=== PATIENT | male | born 1965 | race Caucasian/White ===

== ENCOUNTER 2017-11-12 15:10 | Emergency (ER) | payer SELFPAY ==
[2017-11-12] MEDS ORDERED: Ketorolac INJ* 60 MG/2 ML VIAL IM ONE (16:31)
[2017-11-12] MEDS ORDERED: LORazepam TAB(*) 1 MG PO ONE (16:31)
--- NOTE | 2017-11-12 18:33 | ED ---
Wil Daniel Natalie, scribed for Berto Emerson MD on 11/12/17 at 1636 . Back Pain - HPI Summary HPI Summary: The pt is a 52 y/o M presenting to the ED c/o low right back starting last night. The pain does not radiate. The pain is rated 8/10. The pain is aggravated by movement and is alleviated by nothing. The pt used a heating pad and took warm baths to no relief. 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 Pt denies abnormal urination and BM, and loss of appetite. 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 - History of Current Complaint Chief Complaint: EDBackInjuryPain Stated Complaint: LOWER BACK PAIN Time Seen by Provider: 11/12/17 16:19 Hx Obtained From: Patient Onset/Duration: Sudden Onset, Lasting Hours - started last night, Still Present Onset/Duration: Started Hours Ago, Still Present Timing: Constant Severity Initially: Moderate Severity Currently: Moderate Pain Intensity: 8 Pain Scale Used: 0-10 Numeric Aggravating Symptom(s): Movement Alleviating Symptom(s): Nothing Associated Signs And Symptoms: Positive: Other - POSITIVE: normal urination and BM; NEGATIVE: loss of appetite - Allergies/Home Medications Allergies/Adverse Reactions: Allergies Allergy/AdvReac Type Severity Reaction Status Date / Time No Known Allergies Allergy Verified 10/10/15 20:53 PMH/Surg Hx/FS Hx/Imm Hx Previously Healthy: No Musculoskeletal History: Reports: Hx Back Problems Opthamlomology History: Denies: Hx Legally Blind EENT History: Denies: Hx Deafness - Immunization History Date of Tetanus Vaccine: unknown Date of Influenza Vaccine: NO Infectious Disease History: No Infectious Disease History: Denies: Traveled Outside the [place] in Last 30 Days - Family History Known Family History: Positive: Cardiac Disease, Hypertension, Diabetes, Respiratory Disease - Social History Alcohol Use: Daily Alcohol Amount: 11/12/17 "haven't had a drink in a week" Substance Use Type: Reports: Marijuana Hx Tobacco Use: Yes Smoking Status (MU): Light Every Day Tobacco Smoker Review of Systems Positive: Other - normal BM Positive: other - normal urination Positive: Other - low right back pain Neurological: Other - no loss of appetite All Other Systems Reviewed And Are Negative: Yes Physical Exam - Summary Physical Exam Summary: Appearance: The patient is well-nourished in no acute distress and in no acute pain. Skin: The skin is warm and dry and skin color reflects adequate perfusion. HEENT: The head is normocephalic and atraumatic. The pupils are equal and reactive. The conjunctivae are clear and without drainage. Nares are patent and without drainage. Mouth reveals moist mucous membranes and the throat is without erythema and exudate. The external ears are intact. The ear canals are patent and without drainage. The tympanic membranes are intact. Neck: The neck is supple with full range of motion and non-tender. There are no carotid bruits. There is no neck vein distension. Respiratory: Chest is non-tender. Lungs are clear to auscultation and breath sounds are symmetrical and equal. Cardiovascular: Heart is regular rate and rhythm. There is no murmur or rub auscultated. There is no peripheral edema and pulses are symmetrical and equal. Abdomen: There is mild RLQ tenderness. There are normal bowel sounds heard in all four quadrants and there is no organomegaly palpated. Musculoskeletal: There is tenderness in paralumbar area Extremities are non- tender with full range of motion. There is good capillary refill. There is no peripheral edema or calf tenderness elicited. Neurological: Patient is alert and oriented to person, place and time. The patient has symmetrical motor strength in all four extremities. Cranial nerves are grossly intact. Positive straight leg raise on right. Psychiatric: The patient has an appropriate affect and does not exhibit any anxiety or depression. Triage Information Reviewed: Yes Vital Signs On Initial Exam: Initial Vitals Temp Pulse Resp BP Pulse Ox 97.6 F 61 19 134/83 97 11/12/17 15:18 11/12/17 15:18 11/12/17 15:18 11/12/17 15:18 11/12/17 15:18 Vital Signs Reviewed: Yes - Angela Coma Scale Coma Scale Total: 15 Diagnostics - Vital Signs Vital Signs Temp Pulse Resp BP Pulse Ox 11/12/17 15:18 97.6 F 61 19 134/83 97 - Laboratory Lab Statement: Any lab studies that have been ordered have been reviewed, and results considered in the medical decision making process. Back Pain Course/Dx - Course Course Of Treatment: Mr. Rabago presented with low back pain without acute injury which he has had in the past. His exam was consistent with strain and he was treated with Ativan as a muscle relaxer and Toradol. He got a lot of relief and I will treat him accordingly. - Diagnoses Provider Diagnoses: Low back strain Discharge - Discharge Plan Condition: Stable Disposition: HOME Prescriptions: LORazepam TAB(*) [Ativan TAB(*)] 1 mg PO Q6H PRN #20 tab MDD 4 PRN Reason: Pain Patient Education Materials: Low Back Strain (ED) Referrals: No Primary Care Phys,NOPCP [Primary Care Provider] - 3 Days Additional Instructions: Follow up with your primary care provider in 3-5 days. Take Ativan as prescribed. Return to the Emergency Department if any new or worsening symptoms occur. The documentation as recorded by the Wli pires Natalie accurately reflects the service I personally performed and the decisions made by me, Berto Emerson MD.
[2017-11-12 18:46] VITALS: BP 131/78
== END 2017-11-12 18:45 | disposition home or self-care (01) ==
LOC: ED 15:10
DX: S39.012A Strain of muscle, fascia and tendon of lower back, initial encounter (principal); X58.XXXA Exposure to other specified factors, initial encounter; F17.200 Nicotine dependence, unspecified, uncomplicated
CPT/HCPCS: 96372; 99282; A9270-GY; J1885

== ENCOUNTER 2019-04-03 13:35 | Emergency (ER) | payer SELFPAY ==
--- NOTE | 2019-04-03 15:09 | ED ---
Throat Pain/Nasal Congestion - HPI Summary HPI Summary: Patient complains of right-sided facial swelling with history of broken tooth and upper right jaw. Denies pain but states facial swelling started yesterday with large increased today. Denies ESTRADA, fever, ear pain, cough, sore throat, CP , SOB, N/V/D, abdominal pain, change in urine, change in BM. Patient eating and drinking normally. - History of Current Complaint Chief Complaint: EDDentalPain Time Seen by Provider: 04/03/19 14:42 Hx Obtained From: Patient Onset/Duration: Sudden Onset, Lasting Days Severity: Mild Associated Signs And Symptoms: Positive: Negative Cough: None - Allergies/Home Medications Allergies/Adverse Reactions: Allergies Allergy/AdvReac Type Severity Reaction Status Date / Time No Known Allergies Allergy Verified 04/03/19 13:54 PMH/Surg Hx/FS Hx/Imm Hx Endocrine/Hematology History: Denies: Hx Anticoagulant Therapy Cardiovascular History: Denies: Hx Pacemaker/ICD History: Denies: Hx Dialysis Musculoskeletal History: Reports: Hx Back Problems Sensory History: Denies: Hx Deafness Opthamlomology History: Denies: Hx Legally Blind EENT History: Denies: Hx Hearing Aid Neurological History: Denies: Hx Dementia Psychiatric History: Denies: Hx Autism - Immunization History Date of Tetanus Vaccine: unknown Date of Influenza Vaccine: NO Infectious Disease History: No Infectious Disease History: Denies: Traveled Outside the [place] in Last 30 Days - Family History Known Family History: Positive: Cardiac Disease, Hypertension, Diabetes, Respiratory Disease - Social History Alcohol Use: Daily Alcohol Amount: 11/12/17 "haven't had a drink in a week" Substance Use Type: Reports: Marijuana Hx Tobacco Use: Yes Smoking Status (MU): Light Every Day Tobacco Smoker Review of Systems Constitutional: Negative Eyes: Negative ENT: Negative Cardiovascular: Negative Respiratory: Negative Gastrointestinal: Negative Genitourinary: Negative Musculoskeletal: Negative Skin: Other Neurological: Negative Psychological: Normal All Other Systems Reviewed And Are Negative: Yes Physical Exam - Summary Physical Exam Summary: Facial swelling with evidence of cellulitis and possible beginning abscess on right side of face lateral to nose and superior to mouth. No fluctuance. Full range of motion of jaw. ENT exam unremarkable. Triage Information Reviewed: Yes Vital Signs On Initial Exam: Initial Vitals Temp Pulse Resp BP Pulse Ox 97.1 F 88 18 147/79 96 04/03/19 13:36 04/03/19 13:36 04/03/19 13:36 04/03/19 13:36 04/03/19 13:36 Vital Signs Reviewed: Yes Appearance: Positive: Well-Appearing Skin: Positive: Warm Head/Face: Positive: Normal Head/Face Inspection Eyes: Positive: Normal ENT: Positive: Normal ENT inspection Neck: Positive: Supple Respiratory/Lung Sounds: Positive: Clear to Auscultation Cardiovascular: Positive: Normal Abdomen Description: Positive: Nontender Musculoskeletal: Positive: Normal Neurological: Positive: Normal Psychiatric: Positive: Normal AVPU Assessment: Alert - Angela Coma Scale Best Eye Response: 4 - Spontaneous Best Motor Response: 6 - Obeys Commands Best Verbal Response: 5 - Oriented Coma Scale Total: 15 Diagnostics - Vital Signs Vital Signs Temp Pulse Resp BP Pulse Ox 04/03/19 13:36 97.1 F 88 18 147/79 96 - Laboratory Lab Statement: Any lab studies that have been ordered have been reviewed, and results considered in the medical decision making process. EENT Course/Dx - Course Course Of Treatment: Patient complains of right-sided facial swelling with history of broken tooth and upper right jaw. Denies pain but states facial swelling started yesterday with large increased today. Denies ESTRADA, fever, ear pain, cough, sore throat, CP, SOB, N/V/D, abdominal pain, change in urine, change in BM. Patient eating and drinking normally. Physical exam:Facial swelling with evidence of cellulitis and possible beginning abscess on right side of face lateral to nose and superior to mouth. No fluctuance. Full range of motion of jaw. ENT exam unremarkable. Vital signs within normal limits. History of abscess, states usually resolve with by mouth antibiotics. No indication for I&D. Trial of Augmentin by mouth. Patient understands and approves of plan. - Diagnoses Provider Diagnoses: Cellulitis Discharge - Sign-Out/Discharge Documenting (check all that apply): Patient Departure Patient Received Moderate/Deep Sedation with Procedure: No - Discharge Plan Condition: Stable Disposition: HOME Prescriptions: Amoxicillin/Clavulanate TAB* [Augmentin TAB 875*] 875 mg PO BID #20 tab Patient Education Materials: Cellulitis (ED), Abscess (ED) Referrals: No Primary Care Phys,NOPCP [Primary Care Provider] - Additional Instructions: Take antibiotics as directed. Use warm compresses or warm shower water. Follow -up with primary care. Return to the ED for any new or worsening symptoms. - Billing Disposition and Condition Condition: STABLE Disposition: Home
[2019-04-03 15:39] VITALS: BP 131/70
== END 2019-04-03 15:37 | disposition home or self-care (01) ==
LOC: ED 13:35
DX: L03.211 Cellulitis of face (principal); K03.81 Cracked tooth; F17.200 Nicotine dependence, unspecified, uncomplicated
CPT/HCPCS: 99282

== ENCOUNTER 2019-09-12 22:55 | Emergency (ER) | payer SELFPAY ==
--- NOTE | 2019-09-12 23:05 | ED ---
Substance Abuse/Use - HPI Summary HPI Summary: 54 yo male presents via EMS s/p fall. Pt is currently, admittedly, drunk - therefore the majority of the history is provided by EMS. They tell me that pt admitted to having around 12-14 drinks today. He was talking to his daughter, Deborah about an upcoming birthday green party. Pt fell down about 12 steps on a set of stairs at home. Daughter found him at the bottom of the steps and called 911. Pt states the last thing he remembers is talking to his daughter on the phone and then being in the ambulance. Currently complains of a headache. Denies vision changes, dizziness, SOB, chest pain, abdominal pain, n/v. - History Of Current Complaint Chief Complaint: EDFall Stated Complaint: FALL PER EMS Time Seen by Provider: 09/12/19 23:05 Hx Obtained From: Patient, EMS - Allergies/Home Medications Allergies/Adverse Reactions: Allergies Allergy/AdvReac Type Severity Reaction Status Date / Time No Known Allergies Allergy Verified 04/03/19 13:54 Home Medications: Home Medications NK [No Home Medications Reported] 09/12/19 [History Confirmed 09/12/19] PMH/Surg Hx/FS Hx/Imm Hx Endocrine/Hematology History: Denies: Hx Anticoagulant Therapy Cardiovascular History: Denies: Hx Pacemaker/ICD History: Denies: Hx Dialysis Musculoskeletal History: Reports: Hx Back Problems Sensory History: Denies: Hx Legally Blind, Hx Deafness, Hx Hearing Aid Opthamlomology History: Denies: Hx Legally Blind Neurological History: Denies: Hx CVA, Hx Dementia, Hx Headaches, Hx Migraine Psychiatric History: Denies: Hx Autism - Surgical History Surgical History: None - Immunization History Date of Tetanus Vaccine: unknown Date of Influenza Vaccine: NO Immunizations Up to Date: Yes Infectious Disease History: No Infectious Disease History: Denies: Traveled Outside the [place] in Last 30 Days - Family History Known Family History: Positive: Cardiac Disease, Hypertension, Diabetes, Respiratory Disease - Social History Lives: With Family Alcohol Use: Daily Substance Use Type: Reports: Marijuana Hx Tobacco Use: Yes Smoking Status (MU): Light Every Day Tobacco Smoker Review of Systems Constitutional: Negative Cardiovascular: Negative Respiratory: Negative Gastrointestinal: Negative Genitourinary: Negative Musculoskeletal: Negative Skin: Negative Positive: Headache Psychological: Normal All Other Systems Reviewed And Are Negative: No Physical Exam - Summary Physical Exam Summary: GENERAL: NAD. WDWN. No pain distress. SKIN: Small superficial abrasion to parietal scalp with dried blood. HEENT: Head: AT/NC Eyes: PERRLA. EOM intact. Conjunctiva clear without inflammation or discharge. Ears: Hearing grossly normal. TMs intact, no bulging, erythema, or edema. Nose: Nasal mucosa pink and moist. NTTP maxillary and frontal sinus. Throat: Posterior oropharynx without exudates, erythema, or tonsillar enlargement. Uvula midline. NECK: Supple. Nontender. No lymphadenopathy. CHEST: CTAB. No r/r/w. No accessory muscle use. Breathing comfortably and in no distress. CV: RRR. Pulses intact. Brisk cap refill. ABDOMEN: Soft. NTTP. No distention or guarding., No organomegaly. No CVA tenderness. Bowel sounds present MSK: FROM and 5/5 strength throughout. No edema. NEURO: Alert. PSYCH: Age appropriate behavior. Triage Information Reviewed: Yes Vital Signs On Initial Exam: Initial Vitals Temp Pulse Resp BP Pulse Ox 97.2 F 57 14 128/84 96 09/12/19 22:56 09/12/19 22:56 09/12/19 22:56 09/12/19 22:56 09/12/19 22:56 Vital Signs Reviewed: Yes Procedures - Sedation Patient Received Moderate/Deep Sedation with Procedure: No Diagnostics - Vital Signs Vital Signs Temp Pulse Resp BP Pulse Ox 09/12/19 22:56 97.2 F 57 14 128/84 96 - Laboratory Lab Results: Laboratory Tests 09/12/19 23:59 Serum Alcohol 290 H Lab Statement: Any lab studies that have been ordered have been reviewed, and results considered in the medical decision making process. - CT Brain CT Interpretation Completed By: Radiologist Summary of CT Findings: IMPRESSION: No acute intracranial abnormality. Cervical CT Interpretation Completed By: Radiologist Summary of CT Findings: FINDINGS: Vertebrae: Mild to moderate levoconvex curvature. Nonspecific straightening of the cervical lordosis. Vertebral body height and AP alignment is preserved. Mild to moderate degenerative change about the dens. Mild to moderate prevertebral osteophytosis. No acute cervical spine fracture. Discs/Spinal canal/Neural foramina: Central canal stenosis greatest at C5-C6, likely moderate. Scattered cervical foraminal stenoses. Soft tissues: Unremarkable. Thyroid: 1.3 cm left thyroid nodule. Lungs: Lung apices are normal. Pleural space: No visible pneumothorax. IMPRESSION: No acute cervical spine fracture. COMMENT: In patients aged 35 years and older with an incidental thyroid nodule equal to or greater than 1.[address], MRI or extrathyroidal US, further evaluation with dedicated thyroid US is recommended for patients with normal life expectancy and without comorbidities. For smaller nodules without suspicious features, no further evaluation or follow up is recommended. Course/Dx - Course Course Of Treatment: Discussed CT results with pt. He is currently ambulatory and AAOx3. Recheck neuro exam WNL. Made him aware of the thyroid nodule and recommended f/u with PCP within 4-6 weeks. He voiced understanding and agrees with the plan. His daughter has been called and agrees to come pick pt up for safe discharge. - Diagnoses Provider Diagnoses: Alcohol intoxication, Fall, Thyroid nodule Discharge ED - Sign-Out/Discharge Documenting (check all that apply): Patient Departure - Discharge Plan Condition: Stable Disposition: HOME Patient Education Materials: Abuse of Alcohol (ED), Thyroid Nodules (ED) Referrals: No Primary Care Phys,NOPCP [Primary Care Provider] - [facility] [Outside] - As Soon As Possible Additional Instructions: If you develop a fever, shortness of breath, chest pain, new or worsening symptoms - please call your PCP or go to the ED immediately. The imaging today showed a small thyroid nodule on your thyroid. I recommend that you schedule an appointment with a primary doctor within 4-6 weeks for a recheck of this and for routine care. Please call the number below to schedule an appointment. - Billing Disposition and Condition Condition: STABLE Disposition: Home - Attestation Statements Provider Attestation: the patient was seen by the midlevel provider, it was determined by them that it was not necessary for me to see the patient, I was available for consult during the patient's visit in the ED. I did not establish and patient-physician relationship. The chart however has been reviewed and I am signing in an administrative capacity.
[2019-09-13 01:42] VITALS: BP 119/52
== END 2019-09-13 01:40 | disposition home or self-care (01) ==
LOC: ED 22:55
DX: F10.929 Alcohol use, unspecified with intoxication, unspecified (principal); E04.1 Nontoxic single thyroid nodule; W10.9XXA Fall (on) (from) unspecified stairs and steps, initial encounter; Y92.009 Unspecified place in unspecified non-institutional (private) residence as the place of occurrence of the external cause; F17.200 Nicotine dependence, unspecified, uncomplicated
CPT/HCPCS: 36415; 70450; 72125; 80320; 99283; G0480